=== PATIENT | male | born 1960 | race Caucasian/White ===

== ENCOUNTER 2018-05-09 00:02 | Emergency (ER) | payer SELFPAY ==
[~2018-05-09] VITALS: Ht 185.4 cm; Wt 90.7 kg
[2018-05-09 00:02] VITALS: BP_SYST 170
[2018-05-09 03:35] VITALS: BP_SYST 148
== END 2018-05-09 03:35 | disposition home or self-care (01) ==
LOC: SED 00:02
DX: K40.90 Unilateral inguinal hernia, without obstruction or gangrene, not specified as recurrent (principal); Z88.5 Allergy status to narcotic agent
CPT/HCPCS: 76870-TC; 99284